=== PATIENT | male | born 1940 | race Caucasian/White ===

== ENCOUNTER → 2018-07-18 | Outpatient (CLI) | payer OTHER ==
[~2018-07-18] MED LIST: FLAGYL500MG PO; FOLIC ACID1 MG PO; INTEGRA PLUS C1 EACH PO; Intestinex CAP PO; NeurRONTin 400MG CAP PO; Neurin-Sl Tablet Sl SL; PROTEINEX WC L887 ML PO
== END | disposition home or self-care (01) ==
LOC: NUCLEAR 07:45
DX: I20.9 Angina pectoris, unspecified (principal)
CPT/HCPCS: 78452; 93017; A9500

== ENCOUNTER → 2018-10-03 | Outpatient (CLI) | payer OTHER | END | disposition home or self-care (01) | LOC: SONOGRAMA 12:51 → MAMO-SONO 13:15 | DX: E03.8 Other specified hypothyroidism (principal) ==

== ENCOUNTER 2019-02-02 09:20 | Outpatient (CLI) | payer OTHER ==
[~2019-02-02 09:20] MED LIST changes: -LEVOTHYROXINE25 MCG
[2019-02-02] MEDS ORDERED: LEVOTHYROXINE25 MCG (15:31)
== END 2019-02-02 09:42 | disposition home or self-care (01) ==
LOC: NUCLEAR 09:20
DX: I67.89 Other cerebrovascular disease (principal)

== ENCOUNTER 2019-02-02 10:29 | Outpatient (CLI) | payer OTHER ==
[2019-02-02] MEDS ORDERED: LEVOTHYROXINE25 MCG (15:31)
== END 2019-02-02 10:31 | disposition home or self-care (01) ==
LOC: MRI 10:29
DX: R48.8 Other symbolic dysfunctions (principal); R53.1 Weakness
CPT/HCPCS: 70544

== ENCOUNTER → 2019-02-02 | Emergency (ER) | payer OTHER ==
[~2019-02-02] VITALS: Ht 200.7 cm; Wt 64.9 kg
[~2019-02-02] MED LIST changes: +LEVOTHYROXINE25 MCG
== END | disposition left against medical advice (07) ==
LOC: ER 14:40
DX: I62.00 Nontraumatic subdural hemorrhage, unspecified (principal)

== ENCOUNTER → 2019-02-06 | Emergency (ER) | payer OTHER ==
[~2019-02-06] VITALS: Ht 172.7 cm; Wt 63.5 kg
[~2019-02-06] MED LIST changes: +LEVOTHYROXINE25 MCG
== END | disposition designated cancer center or children's hospital (05) ==
LOC: ER 10:59
DX: I69.298 Other sequelae of other nontraumatic intracranial hemorrhage (principal)

== ENCOUNTER 2019-10-22 14:34 | Outpatient (CLI) | payer OTHER | END 2019-10-22 14:51 | disposition home or self-care (01) | LOC: TOM 14:34 | PROVIDERS: ATTEND Psychiatry & Neurology Neurology | DX: I62.00 Nontraumatic subdural hemorrhage, unspecified (principal) ==

== ENCOUNTER 2021-02-25 23:56 | Emergency (ER) | payer OTHER ==
[~2021-02-25] VITALS: Ht 172.7 cm; Wt 60.3 kg
[2021-02-26] MEDS ORDERED: TAMS0.4C PO (03:17)
[2021-02-26] MEDS ORDERED: CIPRO500 MG PO (03:17)
== END 2021-02-26 04:02 | disposition home or self-care (01) ==
LOC: ER 23:56
DX: R31.9 Hematuria, unspecified (principal)

== ENCOUNTER 2021-07-07 08:27 | Outpatient (CLI) | payer OTHER ==
[~2021-07-07 08:27] MED LIST changes: +CIPRO500 MG PO; +TAMS0.4C PO
== END 2021-07-07 08:41 | disposition home or self-care (01) ==
LOC: NUCLEAR 08:27
PROVIDERS: ATTEND Internal Medicine
DX: R22.43 Localized swelling, mass and lump, lower limb, bilateral (principal)

== ENCOUNTER 2021-08-08 07:15 | Outpatient (CLI) | payer OTHER | END 2021-08-08 07:16 | disposition home or self-care (01) | LOC: NUCLEAR 07:15 | PROVIDERS: ATTEND Internal Medicine Cardiovascular Disease | DX: R07.89 Other chest pain (principal) | CPT/HCPCS: 78452; 93017; A9510 ==

== ENCOUNTER 2021-11-15 07:55 | Outpatient (CLI) | payer OTHER | END 2021-11-15 08:09 | disposition home or self-care (01) | LOC: SONOGRAMA 07:55 | PROVIDERS: ATTEND Internal Medicine Cardiovascular Disease | DX: N18.2 Chronic kidney disease, stage 2 (mild) (principal) ==

== ENCOUNTER 2022-01-17 11:48 | Outpatient (CLI) | payer OTHER | END 2022-01-17 12:21 | disposition home or self-care (01) | LOC: TOM 11:48 | PROVIDERS: ATTEND Internal Medicine | DX: S00.83XA Contusion of other part of head, initial encounter (principal) ==

== ENCOUNTER 2022-05-11 12:39 | Outpatient (CLI) | payer OTHER | END 2022-05-11 12:52 | disposition home or self-care (01) | LOC: TOM 12:39 | PROVIDERS: ATTEND Internal Medicine | DX: S09.90XA Unspecified injury of head, initial encounter (principal) ==

== ENCOUNTER 2023-04-27 23:08 | Emergency (ER) | payer OTHER ==
[~2023-04-27] VITALS: Ht 172.7 cm; Wt 61.2 kg
[2023-04-27] MEDS ORDERED: PROSCAR5 MG PO (23:37)
== END 2023-04-28 02:41 | disposition home or self-care (01) ==
LOC: ER 23:09
DX: S01.82XA Laceration with foreign body of other part of head, initial encounter (principal); W22.8XXA Striking against or struck by other objects, initial encounter; Y93.89 Activity, other specified; Y92.018 Other place in single-family (private) house as the place of occurrence of the external cause; Z88.6 Allergy status to analgesic agent

== ENCOUNTER → 2023-07-22 | Emergency (ER) | payer OTHER ==
[~2023-07-22] VITALS: Ht 172.7 cm; Wt 59.0 kg
[~2023-07-22] MED LIST changes: +LIDOCAINE HCL 100 MG/10ML VIAL IJ ONE; +LevETIRAcetam 500 MG/5 ML VIAL IV ONE; +PROSCAR5 MG PO; +TETANUS & DIPHTHERIA TOX,ADULT 0.5 ML VIAL IM ONE
[2023-07-22 21:08] LABS: HEMATOCRIT 42.7 % (39.0-48.0); HEMOGLOBIN 14.6 g/dL (13-16.00); MEAN CELL VOLUME 98.3 fL (80.0-100.00); MEAN CORPUSCULAR HEMOGLOBIN 33.6 pg (27.00-32.0); MEAN CORPUSCULAR HGB CONC 34.1 g/dl (32.0-36.0); PLATELET COUNT 206 K/uL (150-450); RED BLOOD COUNT 4.35 M/uL (4.00-6.00); RED CELL DISTRIBUTION WIDTH 14.3 % (11.5-14.5)
[2023-07-22 21:25] LABS: INR 1.02; PARTIAL THROMBOPLASTIN TIME 26.6 SECONDS (22.0-34.0); PROTHROMBIN TIME 10.7 SECONDS (9.0-11.5)
[2023-07-22 21:27] LABS: ALBUMIN 3.6 gm/dL (3.4-5.0); BILIRUBIN TOTAL 0.67 mg/dL (0.3-1.2); CALCIUM 8.8 mg/dL (8.5-10.1); CREATININE SERUM 0.92 mg/dL (0.70-1.30); GFR 78.96; GLOBULINA 3.9 G/DL (2.4-3.5); POTASSIUM 3.74 mEq/L (3.5-5.1); TOTAL PROTEIN 7.5 gm/dL (6.4-8.2)
== END | disposition designated cancer center or children's hospital (05) ==
LOC: ER 16:50
PROVIDERS: General Practice
DX: S06.6XAA Traumatic subarachnoid hemorrhage with loss of consciousness status unknown, initial encounter (principal); W18.39XA Other fall on same level, initial encounter; Y93.89 Activity, other specified; Y92.89 Other specified places as the place of occurrence of the external cause; S01.02XA Laceration with foreign body of scalp, initial encounter; Z88.6 Allergy status to analgesic agent; E03.9 Hypothyroidism, unspecified; Z20.822 Contact with and (suspected) exposure to COVID-19
CPT/HCPCS: 12001; 36415; 70450; 72125; 96365; 99285; J2001; J3490

== ENCOUNTER 2023-07-29 09:14 | Emergency (ER) | payer OTHER ==
[~2023-07-29] VITALS: Ht 152.4 cm; Wt 59.0 kg
[~2023-07-29 09:14] MED LIST changes: -LIDOCAINE HCL 100 MG/10ML VIAL IJ ONE; -LevETIRAcetam 500 MG/5 ML VIAL IV ONE; -TETANUS & DIPHTHERIA TOX,ADULT 0.5 ML VIAL IM ONE
== END 2023-07-29 11:39 | disposition home or self-care (01) ==
LOC: ER 09:14
DX: Z48.02 Encounter for removal of sutures (principal)

== ENCOUNTER 2024-11-06 07:27 | Outpatient (CLI) | payer OTHER | END 2024-11-06 07:28 | disposition home or self-care (01) | LOC: NUCLEAR 07:27 | PROVIDERS: ATTEND Internal Medicine | DX: I20.9 Angina pectoris, unspecified (principal) | CPT/HCPCS: 78452; 93017; A9500 ==

== ENCOUNTER 2024-12-22 14:34 | Outpatient (CLI) | payer OTHER | END 2024-12-22 14:45 | disposition home or self-care (01) | LOC: MRI 14:34 | PROVIDERS: ATTEND Internal Medicine | DX: R51.9 Headache, unspecified (principal); I62.00 Nontraumatic subdural hemorrhage, unspecified; Z91.81 History of falling | CPT/HCPCS: 70551 ==

== ENCOUNTER 2025-03-21 11:57 | Emergency (ER) | payer OTHER ==
[~2025-03-21] VITALS: Ht 172.7 cm; Wt 59.9 kg
[2025-03-21] MEDS ORDERED: LACTOBACILLUS ACIDOPHILUS 1 CAP CAP PO STA (13:14)
[2025-03-21] MEDS ORDERED: FAMOTIDINE/PF 20 MG/2 ML VIAL IV STA (13:14)
[2025-03-21] MEDS ORDERED: ONDANSETRON HCL 2 MG/ML VIAL IV STA (13:14)
[2025-03-21] MEDS ORDERED: 0.9 % SODIUM CHLORIDE 1,000 ML IV STA (13:14)
[2025-03-21 16:14] LABS: BASO % 0.4 % (0.1-1.2); EOS # 0.04 (0.04-0.54); EOS % 0.5 % (0.7-7.0); LYMPH # 1.13 (1.18-3.74); LYMPH % 14.0 % (19.3-53.1); MEAN PLATELET VOLUME 11.70 fl (9.4-12.4); MONO # 0.61 (0.24-0.82); MONO % 7.6 % (4.7-12.5); NEUT # 6.22 (1.56-6.13); NEUT % 77.1 % (34.0-71.1); RED CELL DISTRIBUTION WIDTH 13.8 % (11.6-14.4)
[2025-03-21 16:15] LABS: ERYTHROCYTE SEDIMENTATION RATE 15 mm/hr (0-20)
[2025-03-21 16:41] LABS: INR 1.03
[2025-03-21 16:49] LABS: ALT/SGPT 26.0 U/L (12-78); AST/SGOT 16.0 U/L (15-37); BILIRUBIN TOTAL 0.96 mg/dL (0.3-1.2); BUN CREA RATIO 19.0 (7.0-25.0); CREATININE SERUM 0.78 mg/dL (0.70-1.30); GFR 95.06; GLOBULINA 3.6 G/DL (2.4-3.5); GLUCOSE FASTING 94.0 mg/dL (65-100); OSMOLALITY SERUM 286.0 MOSM/KG (275-295)
[2025-03-21 17:35] LABS: URINE APPEARANCE Clear; URINE BILIRRUBIN Negative (NEGATIVE); URINE BLOOD Negative; URINE COLOR Yellow; URINE GLUCOSE Negative (NEGATIVE); URINE KETONE Negative (NEGATIVE); URINE LEUKOCYTE Negative; URINE NITRATE Negative; URINE PROTEIN Negative (NEGATIVE); URINE UROBILINOGEN 0.2 E.U./dl
[2025-03-21 17:42] LABS: URINE BACTERIA 25.2 uL (0.0-1933); URINE EPITHELIAL CELLS 6.7 uL (0.0-38.8); URINE RBC 2.3 uL (0.0-20.8); URINE WBC 9.6 uL (0.0-23.2)
[2025-03-21 17:57] LABS: URINE CAST 0.00 uL (0.0-1.40)
== END 2025-03-21 19:08 | disposition home or self-care (01) ==
LOC: ER 11:57
PROVIDERS: Physician Assistant Medical
DX: K52.89 Other specified noninfective gastroenteritis and colitis (principal); E86.0 Dehydration; Z88.6 Allergy status to analgesic agent
CPT/HCPCS: 36415; 96365; 96366; 99282; J2405; J3490; J7030